=== PATIENT | male | born 1970 | race Caucasian/White ===

== ENCOUNTER 2017-09-07 09:17 | Emergency (ER) | payer OTHER ==
[2017-09-07 09:24] VITALS: BP 148/99
[2017-09-07] MEDS ORDERED: Fluorescein Sodium TOPICAL* 1 MG TEST OPHTHALMIC ONE (09:32)
[2017-09-07] MEDS ORDERED: Fluorescein Sod TOPICAL 0.6* 0.6 MG TEST OPHTHALMIC ONE (09:46)
--- NOTE | 2017-09-07 09:58 | UC ---
Eye Complaint HPI - HPI Summary HPI Summary: While working outside yesterday accidentally poked self in L eye with a branch that flew back. Denies recent grinding or welding, no visual disturbance. Today eye is red and watery. Now eye feels like "sandpaper." - History of Current Complaint Chief Complaint: UCEye Stated Complaint: EYE INJURY Time Seen by Provider: 09/07/17 09:30 Hx Obtained From: Patient Onset/Duration: Sudden Onset Timing: Constant Severity Initially: Moderate Severity Currently: Mild Pain Intensity: 6 Location of Injury: Globe Character: Sharp Aggravating Factor(s): Blinking Alleviating Factor(s): Nothing - Risk Factors Penetrating Injury Risk Factor: Negative Globe Rupture Risk Factors: Negative Acute Glaucoma Risk Factors: Negative - Allergies/Home Medications Allergies/Adverse Reactions: Allergies Allergy/AdvReac Type Severity Reaction Status Date / Time No Known Allergies Allergy Verified 09/07/17 09:24 PMH/Surg Hx/FS Hx/Imm Hx Previously Healthy: Yes - Surgical History Surgical History: None - Family History Known Family History: Positive: Hypertension - Social History Alcohol Use: Daily Substance Use Type: None Smoking Status (MU): Former Smoker Review of Systems Constitutional: Negative Skin: Negative Eyes: Drainage, Eye Redness ENT: Negative Respiratory: Negative Cardiovascular: Negative Gastrointestinal: Negative Genitourinary: Negative Motor: Negative Neurovascular: Negative Musculoskeletal: Negative Neurological: Negative Psychological: Negative Is Patient Immunocompromised?: No All Other Systems Reviewed And Are Negative: Yes Physical Exam Triage Information Reviewed: Yes Appearance: Well-Appearing, No Pain Distress, Well-Nourished Vital Signs: Initial Vital Signs Temp 98.1 F 09/07/17 09:21 Pulse 69 09/07/17 09:21 Resp 18 09/07/17 09:21 BP 148/99 09/07/17 09:21 Pulse Ox 97 09/07/17 09:21 Vital Signs Reviewed: Yes Eye Exam: Other - PERRL, EOMI. Eyes: Positive: Conjunctiva Inflamed - L eye, Discharge - clear tears from L eye , Other: - Fluorescein uptake noted in punctate lesion in center of L cornea. No FB, no rust ring. ENT Exam: Normal ENT: Positive: Normal ENT inspection, Hearing grossly normal, Pharynx normal, TMs normal Neck exam: Normal Respiratory Exam: Normal Respiratory: Positive: Chest non-tender, Lungs clear, Normal breath sounds, No respiratory distress, No accessory muscle use Cardiovascular Exam: Normal Cardiovascular: Positive: RRR, No Murmur Musculoskeletal Exam: Normal Neurological Exam: Normal Neurological: Positive: Alert Psychological Exam: Normal Skin Exam: Normal Eye Complaint Course/Dx - Differential Dx/Diagnosis Provider Diagnoses: L eye corneal abrasion Discharge - Sign-Out/Discharge Documenting (check all that apply): Discharge - Discharge Plan Condition: Stable Disposition: HOME Prescriptions: Erythromycin OPTH OINT* [Erythromycin 0.5% OPTH OINT*] 1 applic LEFT EYE TID #1 ophth.oint Patient Education Materials: Corneal Abrasion (DC) Referrals: Angelito Biggs MD [Medical Doctor] - 2 Days Additional Instructions: Please arrange for stone gluer follow up within 2 days. Avoid bright light and activities that require eye focus (reading, using screens, driving). - Billing Disposition and Condition Condition: STABLE Disposition: HOME
== END 2017-09-07 10:10 | disposition home or self-care (01) ==
LOC: UCEAST 09:17
DX: S05.02XA Injury of conjunctiva and corneal abrasion without foreign body, left eye, initial encounter (principal); W22.8XXA Striking against or struck by other objects, initial encounter; Y93.H9 Activity, other involving exterior property and land maintenance, building and construction; Y92.9 Unspecified place or not applicable; Z87.891 Personal history of nicotine dependence
CPT/HCPCS: 99212; A9270-GY; G0463